=== PATIENT | female | born 2000 | race Caucasian/White ===

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

== ENCOUNTER 2021-01-22 15:14 | Emergency (ER) | payer MEDICAID ==
[~2021-01-22] VITALS: Ht 157.5 cm; Wt 56.7 kg
--- NOTE | 2021-01-22 16:05 | NUR ---
Patient triaged and placed in waiting room. VSS and patient appears in no acute distress at this time. Accompanied by self, awaiting available bed, and MD notified of need for MSE.
--- NOTE | 2021-01-22 16:07 | NUR ---
Pt brought by self, A&Ox4,pt presents to ER with sore throat x 2 days, pt afebrile,skink pink and warm,cap refill <3.
[2021-01-22 16:12] VITALS: BP_SYST 117
--- NOTE | 2021-01-22 16:15 | NUR ---
ER DR. AGARWAL AT THE BEDSIDE EXAMINING PT
--- NOTE | 2021-01-22 18:00 | NUR ---
PT RESTING IN BED, NO S/SX OF DISTRESS
[2021-01-22 18:50] LABS: BASOPHILS % (AUTO) 0.3 % (0.0-2.0); HEMATOCRIT 38.4 % (36-48); HEMOGLOBIN 12.8 g/dL (12.0-16.0); LYMPHOCYTES # (AUTO) 2.1 K/uL (1.0-5.5); LYMPHOCYTES % (AUTO) 15.7 % (20.5-51.5); MEAN CORPUSCULAR HEMOGLOBIN 28 pg (27-31); MEAN CORPUSCULAR HGB CONC 33 % (32-36); MEAN CORPUSCULAR VOLUME 84 fL (79.0-98.0); MONOCYTES # (AUTO) 1.4 K/uL (0.0-1.0); MONOCYTES % (AUTO) 10.5 % (1.7-9.3); NEUTROPHILS # (AUTO) 9.6 K/uL (1.8-7.7); NEUTROPHILS % (AUTO) 73.5 % (40.0-70.0); PLATELET COUNT (AUTO) 259 K/uL (130-430); RED BLOOD CELL COUNT(AUTO) 4.59 MIL/uL (4.2-6.2); RED CELL DISTRIBUTION WIDTH 13.3 % (9.0-15.0); WHITE BLOOD COUNT (AUTO) 13.1 K/uL (4.5-11.0)
--- NOTE | 2021-01-22 19:09 | NUR ---
REPORT GIVEN TO BRE PEREYRA FOR CONTINUING CARE
--- NOTE | 2021-01-22 19:10 | NUR ---
Received report from BRE Grayson and continue care of patient.
[2021-01-22] MEDS ORDERED: PENI250T2 PO (20:11)
[2021-01-22] MEDS: CLINDAMYCIN HCL 150 MG CAPSULE PO ONE (20:16)
[2021-01-22 20:19] VITALS: BP_SYST 117
--- NOTE | 2021-01-22 20:19 | NUR ---
Patient given written and verbal discharge instructions and verbalizes understanding. ER MD discussed with patient the results and treatment provided. Patient in stable condition. ID arm band removed. Rx of Penicillin given. Patient educated on pain management and to follow up with PMD. Pain Scale 1/10. Opportunity for questions provided and answered. Medication side effect fact sheet provided.
== END 2021-01-22 20:19 | disposition home or self-care (01) ==
LOC: SED 15:14
DX: J03.90 Acute tonsillitis, unspecified (principal); J45.909 Unspecified asthma, uncomplicated; Z79.899 Other long term (current) drug therapy
CPT/HCPCS: 36415; 85025; 86308-TC; 86403; 87081; 99283

== ENCOUNTER 2022-05-14 09:49 | Emergency (ER) | payer MEDICAID ==
[~2022-05-14] VITALS: Ht 157.5 cm; Wt 59.0 kg
[~2022-05-14 09:49] MED LIST: PENI250T2 PO
[2022-05-14 09:50] VITALS: BP_SYST 112
--- NOTE | 2022-05-14 09:55 | NUR ---
Patient triaged and placed in waiting room. VSS and patient appears in no acute distress at this time. Accompanied by FRIEND, awaiting available bed, and MD notified of need for MSE.
--- NOTE | 2022-05-14 10:40 | NUR ---
DR BAUTISTA OUT TO TRIAGE ROOM FOR EVALUATION
[2022-05-14 12:05] LABS: MONOTEST NEGATIVE (NEGATIVE)
[2022-05-14 12:11] LABS: STREPTOCOCCUS A SCREEN (RAPID) NEGATIVE (NEGATIVE)
--- NOTE | 2022-05-14 12:25 | NUR ---
DR BAUTISTA OUT TO TRIAGE ROOM TO DISCUSS TEST RESULTS
[2022-05-14] MEDS ORDERED: PSEU30TA36 PO (12:57)
[2022-05-14] MEDS ORDERED: IBUP-1969 PO (12:57)
--- NOTE | 2022-05-14 13:02 | NUR ---
Patient given written and verbal discharge instructions and verbalizes understanding. ER MD discussed with patient the results and treatment provided. Patient in stable condition. ID arm band removed. Rx of SUDAFED, IBUPROFEN given. Patient educated on pain management and to follow up with PMD. Pain Scale 0/10. Opportunity for questions provided and answered. Medication side effect fact sheet provided.
== END 2022-05-14 13:02 | disposition home or self-care (01) ==
LOC: SED 09:49
DX: J02.9 Acute pharyngitis, unspecified (principal); R50.9 Fever, unspecified; J45.909 Unspecified asthma, uncomplicated; Z91.030 Bee allergy status; Z79.899 Other long term (current) drug therapy
CPT/HCPCS: 36415; 86308-TC; 86403; 87081; 99283

== ENCOUNTER 2023-12-01 15:16 | Emergency (ER) | payer MEDICAID ==
[~2023-12-01] VITALS: Ht 157.5 cm; Wt 54.4 kg
[~2023-12-01 15:16] MED LIST changes: +IBUP-1969 PO; +PSEU30TA36 PO
[2023-12-01 15:23] VITALS: BP_SYST 122; PULSE 95; RESP 18; TEMP 97.8; O2SAT 96
[2023-12-01 16:17] VITALS: BP_SYST 122; PULSE 95; RESP 18; TEMP 97.8; O2SAT 96
== END 2023-12-01 16:16 | disposition home or self-care (01) ==
LOC: SED 15:16
DX: T48.5X1A Poisoning by other anti-common-cold drugs, accidental (unintentional), initial encounter (principal); R06.02 Shortness of breath; J45.909 Unspecified asthma, uncomplicated; Z91.030 Bee allergy status; Y92.89 Other specified places as the place of occurrence of the external cause
CPT/HCPCS: 93005; 99283

== ENCOUNTER 2023-12-06 05:05 | Emergency (ER) | payer MEDICAID ==
[~2023-12-06] VITALS: Ht 157.5 cm; Wt 54.4 kg
[2023-12-06 05:11] VITALS: BP_SYST 121; PULSE 89; RESP 18; TEMP 97; O2SAT 96
[2023-12-06 05:43] VITALS: BP_SYST 110; PULSE 82; RESP 19; TEMP 97.6; O2SAT 100
[2023-12-06] MEDS: LIDOCAINE VISCOUS 2%, 15 ML UDC MM ONE (05:53)
[2023-12-06] MEDS: KETOROLAC TROMETHAMINE 30 MG VIAL IM ONE (05:55)
[2023-12-06] MEDS: DEXAMETHASONE SOD PHOSPHATE 4 MG/ML VIAL PO ONE (05:58)
== END 2023-12-06 07:00 | disposition home or self-care (01) ==
LOC: SED 05:05
DX: J04.0 Acute laryngitis (principal); H92.01 Otalgia, right ear; R05.9 Cough, unspecified; J45.909 Unspecified asthma, uncomplicated; Z91.030 Bee allergy status; Z79.899 Other long term (current) drug therapy; Z79.2 Long term (current) use of antibiotics
CPT/HCPCS: 99283; 96372; J1100; J1885; J2001